=== PATIENT | male | born 1945 | race Caucasian/White ===

== ENCOUNTER 2018-09-07 21:17 | Emergency (ER) | payer OTHER ==
[~2018-09-07] VITALS: Ht 182.9 cm; Wt 92.1 kg
[~2018-09-07 21:17] MED LIST: UNKNOWN MEDS
[2018-09-07 21:48] LABS: ABSOLUTE NEUTROPHILS 8.3 thou/uL (1.4-8.2); BASOPHILS 0.8 % (0.0-2.0); EOSINOPHILS 2.3 % (0.0-3.0); HEMATOCRIT 43.7 % (42.0-52.0); HEMOGLOBIN 14.3 gm/dL (14.0-18.0); LYMPHOCYTES 13.6 % (24.0-44.0); MCH 24.5 pg (26.0-34.0); MCHC 32.6 g/dL (28.0-37.0); MCV 74.9 fL (80.0-100.0); MONOCYTES 7.3 % (1.0-8.0); PLATELET COUNT 272 thou/uL (150-400); RBC 5.83 mil/uL (4.50-6.00); WBC 10.9 thou/uL (4.0-11.0)
[2018-09-07 21:58] LABS: ANION GAP 12 mmol/L (7-16); BUN 22 mg/dL (7-18); CALCIUM 10.2 mg/dL (8.5-10.1); CHLORIDE 94 mmol/L (98-107); CO2 27 mmol/L (21-32); CREATININE 1.1 mg/dL (0.7-1.3); GLUCOSE 146 mg/dL (74-106); POTASSIUM 3.9 mmol/L (3.5-5.1); SODIUM 133 mmol/L (136-145)
[2018-09-07 22:07] LABS: ALBUMIN 4.2 g/dL (3.4-5.0); SGOT 21 U/L (15-37); SGPT 26 U/L (30-65); TOTAL BILIRUBIN 0.4 mg/dL (<0.1-1.0); TOTAL PROTEIN 8.6 g/dL (6.4-8.2); TROPONIN-I <0.06 ng/mL (<0.06)
[2018-09-07 22:24] LABS: URINE BILIRUBIN NEGATIVE (Negative); URINE BLOOD NEGATIVE (Negative); URINE CLARITY CLEAR; URINE COLOR YELLOW; URINE GLUCOSE-RANDOM* NEGATIVE (Negative); URINE KETONES NEGATIVE (Negative); URINE LEUKOCYTES-REFLEX NEGATIVE (Negative); URINE NITRITE-REFLEX NEGATIVE (Negative); URINE PROTEIN (DIPSTICK) 3+ (Negative); URINE SPECIFIC GRAVITY >= 1.030 (1.005-1.035); URINE UROBILINOGEN 0.2 E.U./dl (0.2-1.0)
[2018-09-07 22:32] LABS: AMP/METHAMP Negative (Negative); BARBITURATES Negative (Negative); BENZODIAZEPINES Negative (Negative); COCAINE Negative (Negative); METHADONE Negative (Negative); OPIATES POSITIVE (Negative); PCP Negative (Negative)
[2018-09-07 22:43] LABS: BACTERIA-REFLEX 1-9 Few /HPF (None Seen); CRYSTALS None Seen /LPF (None Seen); HYALINE CASTS 0-3 Few /LPF (None Seen); MUCUS 0-3 Light strn/LPF (None Seen); SQUAMOUS 0-3 Few /LPF (0-3); URINE RBC 0-2 Rare /HPF (0-2); URINE WBC-REFLEX 0-5 Rare /HPF (0-5)
[2018-09-07] MEDS ORDERED: COREG25 MG PO (23:38)
[2018-09-08 00:01] VITALS: BP 224/124
--- NOTE | 2018-09-08 07:39 | EKG ---
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1945 Requested By: Clyde Kidd Order Number: [id number] MD: Isaías Sneed Measurements Intervals [place] Rate: 103 P: 65 HI: 194 QRS: 56 QRSD: 133 T: 22 QT: 372 QTc: 487 Interpretive Statements Sinus tachycardia Right bundle branch block Compared to ECG 11/02/2009 09:26:03 Right bundle-branch block now present Heart rate has increased Electronically Signed On 09-08-2018 7:38:49 CDT by Isaías Sneed [email or web address] ��������������������������������������������� <ELECTRONICALLY SIGNED> ���������������������������������������� By: Isaías Sneed MD, [facility] ��������������������������������������������� 09/08/18 [id number] Isaías Sneed MD, [facility] /EPI
== END 2018-09-08 00:01 | disposition home or self-care (01) ==
LOC: ER 21:17
PROVIDERS: Physician Assistant
DX: I10 Essential (primary) hypertension (principal); R41.0 Disorientation, unspecified